=== PATIENT | male | born 1985 | race American Indian/Alaskan Native ===

== ENCOUNTER 2021-11-28 00:42 | Emergency (ER) | payer SELFPAY ==
[2021-11-28 01:50] VITALS: BP 128/86
== END 2021-11-29 15:16 | disposition left against medical advice (07) ==
LOC: ED 00:42
DX: S41.112A Laceration without foreign body of left upper arm, initial encounter (principal); Z53.21 Procedure and treatment not carried out due to patient leaving prior to being seen by health care provider; X58.XXXA Exposure to other specified factors, initial encounter; Y93.89 Activity, other specified; Y92.89 Other specified places as the place of occurrence of the external cause; Y99.8 Other external cause status